=== PATIENT | female | born 1990 | race Hispanic/Latino ===

== ENCOUNTER → 2023-04-01 16:00 | Outpatient (CLI) | payer OTHER, SELFPAY ==
--- NOTE | ~2023-04-01 | XR_ITS ---
EXAMINATION: XR hip RT 2V w AP pelvis DATE: 04/01/2023 16:49 INDICATION: Pain in unspecified joint. TECHNIQUE: An anteroposterior view of the pelvis and 2 views of right hip were obtained. COMPARISON: None. FINDINGS: Bone alignment is normal. No fracture. There is mild right hip osteoarthritis characterized by a tiny marginal osteophyte. No joint space narrowing. IMPRESSION: 1. Mild right hip osteoarthritis. Reviewed, dictated and finalized at location E. ICAL TREATMENT OPERATOR
--- NOTE | ~2023-04-01 | XR_ITS ---
EXAMINATION: XR_CERV2-3V_CR DATE: 04/01/2023 16:49 INDICATION: Pain in unspecified joint. TECHNIQUE: 4 views of cervical spine were obtained. COMPARISON: None. FINDINGS: There is mild kyphosis of cervical spine. There is 3 degrees dextrocurvature of cervical sp ine. Vertebral body heights and intervertebral disc heights are normal. The facet joints are normal. No central canal stenosis or prevertebral soft tissue swelling. IMPRESSION: 1. No etiology for the patient's symptoms. Reviewed, dictated and finalized at location E. ANALYST
== END ==
PROVIDERS: PCP Nurse Practitioner Family; Visit Provider Nurse Practitioner Family
DX: M16.11 Unilateral primary osteoarthritis, right hip (principal)
CPT/HCPCS: 72040; 73502

== ENCOUNTER 2024-03-31 11:00 | Outpatient (CLI) | payer OTHER, SELFPAY ==
[2024-03-31 12:10] LABS: Hematocrit 37.6 % (37.0-47.0); Hemoglobin 11.8 g/dL (12.0-15.0)
== END 2024-03-31 11:01 | disposition home or self-care (01) ==
PROVIDERS: PCP Nurse Practitioner Family; Visit Provider Obstetrics & Gynecology
DX: N92.6 Irregular menstruation, unspecified (principal)
CPT/HCPCS: 36415; 85014; 85018

== ENCOUNTER 2025-03-07 12:43 | Outpatient (CLI) | payer OTHER, SELFPAY ==
--- NOTE | ~2025-03-07 | CT_ITS ---
CT abdomen pelvis w con Clinical History: R10.32 - Left lower quadrant pain . Comparison: None Technique: Axial images lung bases to symphysis pubis IV contrast information not listed in PACS Coronal, sagittal reformats CT images acquired with automatic exposure control for dose reduction DLP: 309 mGy-cm Findings: Lung bases: Clear. Visualized heart and pericardium: Unremarkable. Liver: Unremarkable. Gallbladder: Unremarkable. Spleen: Unremarkable. Pancreas: Unremarkable. Adrenal glands: Unremarkable. Kidneys: Right kidney- No hydronephrosis. No renal stones. Left kidney- No hydronephrosis. No renal stones. Distal esophagus/stomach: Unremarkable. Small bowel loops: Normal caliber and wall thickness. Colon: Normal caliber and wall thickness. Normal RLQ appendix. Nodes: No enlarged nodes. Peritoneum: No ascites. No free air. Urinary bladder: Unremarkable. Uterus: Multiple degenerating fibroids. Adnexa: No masses. Corpus luteal cyst left side Bones: No acute bony abnormality. Soft tissues: Small umbilical hernia with fat. Aorta: No aneurysm or dissection. IVC: Unremarkable. Main portal vein/SMV/splenic vein: Patent. IMPRESSION: 1. No acute findings. 2. Several degenerating uterine fibroids. Recommend short interval follow-up transvaginal sonography. Reviewed, dictated and finalized at location R. MACHINE OPERATOR IMPRESSION: 1. No acute findings. 2. Several degenerating uterine fibroids. Recommend short interval follow-up t ransvaginal sonography.
== END 2025-03-07 12:44 | disposition home or self-care (01) ==
PROVIDERS: PCP Nurse Practitioner Family; Visit Provider Nurse Practitioner Family
DX: N85.8 Other specified noninflammatory disorders of uterus (principal); R10.32 Left lower quadrant pain
CPT/HCPCS: 74177; Q9967